=== PATIENT | male | born 1985 | race Two or more races ===

== ENCOUNTER 2022-05-04 08:33 | Emergency (ER) | payer SELFPAY ==
[~2022-05-04] VITALS: Ht 182.9 cm; Wt 98.0 kg
[2022-05-04 09:33] VITALS: BP 117/80
[2022-05-04] MEDS ORDERED: KETOROLAC TROMETH 60MG/2ML VIAL IM ONE (10:30)
[2022-05-04] MEDS ORDERED: IBUP800T27 PO (11:07)
[2022-05-04] MEDS ORDERED: BACL10TA PO (11:07)
== END 2022-05-04 11:15 | disposition home or self-care (01) ==
LOC: EDBD 08:33 → ER 08:33
DX: M54.42 Lumbago with sciatica, left side (principal)
CPT/HCPCS: 96372; 99283; J1885